=== PATIENT | female | born 1985 | race African-American/Black ===

== ENCOUNTER 2017-01-20 10:42 | Emergency (ER) | payer OTHER ==
[2017-01-20 11:14] VITALS: TEMP 98.6; BMI 30.6
--- NOTE | 2017-01-20 12:08 | PDOC ---
History of Present Illness - General History Source: Patient - History of Present Illness Timing/Duration: reports: other <Henry Lovelace - Last Filed: 01/20/17 12:54> <Tisha Greer - Last Filed: 01/20/17 16:23> - General Chief Complaint: Pain, Acute Stated Complaint: ABD PAIN Time Seen by Provider: 01/20/17 11:23 Past History - Past Medical History Anemia: No Asthma: No Cancer: No Cardiac Disorders: No CVA: No COPD: No CHF: No Dementia: No Diabetes: No GI Disorders: Yes (GERD) Disorders: No HTN: No Hypercholesterolemia: No Liver Disease: No Seizures: No Thyroid Disease: No - Surgical History Abdominal Surgery: No Appendectomy: No Cardiac Surgery: No Cholecystectomy: No Lung Surgery: No Neurologic Surgery: No Orthopedic Surgery: No - Immunization History Immunization Up to Date: Yes - Suicide/Smoking/Psychosocial Hx Smoking History: Current some day smoker Have you smoked in the past 12 months: Yes Number of Cigarettes Smoked Daily: 5 Information on smoking cessation initiated: No Hx Alcohol Use: No Drug/Substance Use Hx: No Substance Use Type: None Hx Substance Use Treatment: No <Henry Lovelace - Last Filed: 01/20/17 12:54> <Tisha Greer - Last Filed: 01/20/17 16:23> - Past Medical History Allergies/Adverse Reactions: Allergies Allergy/AdvReac Type Severity Reaction Status Date / Time metoclopramide HCl AdvReac Verified 01/20/17 11:11 [From [facility]] Home Medications: Ambulatory Orders NK [No Known Home Medication] 01/20/17 Review of Systems - Review of Systems Constitutional: No: Chills, Fever ABD/GI: Yes: Abdominal cramping. No: Diarrhea, Nausea, Vomiting : No: Dysuria, Discharge, Flank Pain, Hematuria, Lesions <Henry Lovelace - Last Filed: 01/20/17 12:54> *Physical Exam - Vital Signs Last Vital Signs Temp Pulse Resp BP Pulse Ox 98.6 F 84 19 129/76 98 01/20/17 11:11 01/20/17 11:33 01/20/17 11:11 01/20/17 11:11 01/20/17 11:33 - Physical Exam General Appearance: Yes: Appropriately Dressed. No: Apparent Distress HEENT: positive: Normal Voice Neck: positive: Supple Respiratory/Chest: negative: Respiratory Distress Female Pelvic Exam: positive: normal external exam, normal adnexa. negative: CMT, discharge, adnexal tenderness, vaginal bleeding Gastrointestinal/Abdominal: positive: Normal Bowel Sounds, Soft. negative: Tender, Guarding, Rebound Integumentary: positive: Dry, Warm Neurologic: positive: Fully Oriented, Alert, Normal Mood/Affect <Henry Lovelace - Last Filed: 01/20/17 12:54> - Vital Signs Last Vital Signs Temp Pulse Resp BP Pulse Ox 98.6 F 83 18 143/87 100 01/20/17 11:11 01/20/17 13:19 01/20/17 13:19 01/20/17 13:19 01/20/17 13:19 <Tisha Greer - Last Filed: 01/20/17 16:23> ED Treatment Course - LABORATORY CBC & Chemistry Diagram: 01/20/17 12:00 01/20/17 12:00 <Henry Lovelace - Last Filed: 01/20/17 12:54> - LABORATORY CBC & Chemistry Diagram: 01/20/17 12:00 01/20/17 12:00 - ADDITIONAL ORDERS Additional order review: Laboratory Results 01/20/17 01/20/17 12:00 11:47 Sodium 137 Potassium 4.2 Chloride 107 Carbon Dioxide 24 Anion Gap 6 L BUN 9 D Creatinine 0.6 Creat Clearance w eGFR > 60 Random Glucose 79 D Calcium 8.4 L Total Bilirubin 0.6 D AST 10 L D ALT 14 Alkaline Phosphatase 73 Total Protein 8.1 Albumin 3.7 Lipase 109 Urine Color Yellow Urine Appearance Slcloudy Urine pH 7.0 Ur Specific [place] 1.023 Urine Protein Negative Urine Glucose (UA) Negative Urine Ketones Negative Urine Blood Negative Urine Nitrite Negative Urine Bilirubin Negative Urine Urobilinogen 2.0 H Urine HCG, Qual Negative 01/20/17 12:00 RBC 4.51 MCV 78.5 L MCHC 31.3 L RDW 16.0 H MPV 8.0 Neutrophils % 59.8 Lymphocytes % 30.6 Monocytes % 7.2 Eosinophils % 1.3 Basophils % 1.1 <Tisha Greer - Last Filed: 01/20/17 16:23> Medical Decision Making - Medical Decision Making 01/20/17 12:02 31-year-old female status post bariatric surgery remotely, self-described lesbian, here for STD testing. Patient states her girlfriend developed pelvic pain recently and was seen by her CHURCH ORGANIST and currently being ruled out for STDs, though no diagnosis as of yet. Patient not having any vaginal discharge, itching, odor, or genital lesions but is still concerned and wants to be tested mostly for chlamydia and gonorrhea. Patient does report some suprapubic discomfort for the past couple days that she gets every month prior to her menses and state menses is due in approximately 5 days. Pt well-appearing and stable with benign abdomen and normal pelvic exam. GC/chlamydia sent. Upon discharge, patient to contact ED in 2-3 days for results <Henry Lovelace - Last Filed: 01/20/17 12:54> *DC/Admit/Observation/Transfer <Henry Lovelace - Last Filed: 01/20/17 12:54> - Attestations Physician Attestion: I reviewed the case with the mid-level practitioner and agree with the mid- level practitioner's assessment, diagnosis and disposition. <Tisha Greer - Last Filed: 01/20/17 16:23> Diagnosis at time of Disposition: Concern about STD in female without diagnosis - Discharge Dispostion Condition at time of disposition: Good - Referrals Referrals: Tha Moe MD [Primary Care Provider] - - Patient Instructions Additional Instructions: Call for results in 2-3 days at [phone] - Post Discharge Activity
[2017-01-20 12:09] LABS: BASOPHIL 1.1 % (0-2.0); EOSINOPHIL 1.3 % (0-4.5); MCH 24.6 pg (25.7-33.7); MCHC 31.3 g/dl (32.0-36.0); MEAN CELL VOLUME 78.5 fl (80-96); NEUTROPHILS 59.8 % (42.8-82.8); PLATELET COUNT 305 K/MM3 (134-434); WHITE BLOOD COUNT 4.5 K/mm3 (4.0-10.0)
[2017-01-20 12:18] LABS: URINE APPEARANCE SLCLOUDY; URINE BILIRUBIN NEGATIVE (NEGATIVE); URINE BLOOD NEGATIVE (NEGATIVE); URINE COLOR YELLOW; URINE GLUCOSE (UA) NEGATIVE (NEGATIVE); URINE KETONE NEGATIVE (NEGATIVE); URINE NITRITE NEGATIVE (NEGATIVE); URINE PROTEIN NEGATIVE (NEGATIVE)
[2017-01-20 12:32] LABS: ALBUMIN 3.7 g/dl (3.4-5.0); ANION GAP 6 (8-16); BILIRUBIN,TOTAL 0.6 mg/dL (0.2-1.0); CALCIUM 8.4 mg/dL (8.5-10.1); CO2 24 mmol/L (21-32); CREATININE 0.6 mg/dL (0.55-1.02); GLUCOSE,RANDOM 79 mg/dL (74-106); SGOT/AST 10 U/L (15-37); SGPT/ALT 14 U/L (12-78); TOT PROT 8.1 g/dl (6.4-8.2)
[2017-01-20 12:33] LABS: ALK PHOS 73 U/L (45-117)
[2017-01-20 13:20] VITALS: BP 143/87; PULSE 83
[2017-01-20 19:29] LABS: URINE LEUK ESTERASE Negative (NEGATIVE)
== END 2017-01-20 13:20 | disposition home or self-care (01) ==
LOC: JER 10:42
DX: Z11.3 Encounter for screening for infections with a predominantly sexual mode of transmission (principal)
CPT/HCPCS: 36415; 80053; 81003; 83690; 84703; 85025; 87491; 87591; 99282-25

== ENCOUNTER 2017-09-18 17:28 | Emergency (ER) | payer OTHER ==
[2017-09-18 18:20] VITALS: BP 117/59; PULSE 90; TEMP 98.9
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
== END 2017-09-18 18:39 | disposition home or self-care (01) ==
LOC: JERFT 17:28
DX: S16.1XXA Strain of muscle, fascia and tendon at neck level, initial encounter (principal); V43.52XA Car driver injured in collision with other type car in traffic accident, initial encounter; Y93.89 Activity, other specified; Y92.410 Unspecified street and highway as the place of occurrence of the external cause; S39.012A Strain of muscle, fascia and tendon of lower back, initial encounter; Z98.84 Bariatric surgery status; F17.210 Nicotine dependence, cigarettes, uncomplicated; K21.9 Gastro-esophageal reflux disease without esophagitis
CPT/HCPCS: 99281-25

== ENCOUNTER 2019-03-29 15:09 | Emergency (ER) | payer OTHER ==
[2019-03-29] MEDS ORDERED: DEXAMETHASONE LIQUID 0.5 MG/5 ML PO ONE (15:20)
[2019-03-29] MEDS ORDERED: ACETAMINOPHEN 325 MG TABLET (FP) PO ONE (15:21)
[2019-03-29] MEDS ORDERED: DEXAMETHASONE 4 MG TABLET (FP) ONE (15:28)
[2019-03-29] MEDS ORDERED: ACETAMINOPHEN 650 MG/20.3 ML ORAL SOLUTION (CUPS) ONE (15:28)
[2019-03-29] MEDS ORDERED: DEXAMETHASONE 4 MG TABLET (FP) PO ONE (15:30)
[2019-03-29 15:32] VITALS: BP 117/82; PULSE 78; TEMP 98.5; BMI 30.9
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
== END 2019-03-29 15:54 | disposition home or self-care (01) ==
LOC: FER 15:09
DX: J03.90 Acute tonsillitis, unspecified (principal); Z88.8 Allergy status to other drugs, medicaments and biological substances; F17.210 Nicotine dependence, cigarettes, uncomplicated; K21.9 Gastro-esophageal reflux disease without esophagitis
CPT/HCPCS: 87070; 87880; 99282-25

== ENCOUNTER 2021-09-24 21:29 | Emergency (ER) | payer OTHER ==
[2021-09-24 21:48] VITALS: BP 113/61; PULSE 69; RESP 18; TEMP 98; BMI 31.3
== END 2021-09-24 23:10 | disposition left against medical advice (07) ==
LOC: JER 21:29
DX: R03.0 Elevated blood-pressure reading, without diagnosis of hypertension (principal)
CPT/HCPCS: 99283-25